=== PATIENT | male | born 1995 | race Caucasian/White ===

== ENCOUNTER 2017-12-25 19:35 | Emergency (ER) | payer SELFPAY ==
[~2017-12-25] VITALS: Ht 167.6 cm; Wt 55.8 kg
[2017-12-25 19:43] VITALS: Ht 167.6 cm; Wt 55.8 kg
[2017-12-25 20:46] VITALS: BP 107/64
== END 2017-12-25 20:46 | disposition home or self-care (01) ==
LOC: ED 19:35
DX: H10.13 Acute atopic conjunctivitis, bilateral (principal)